=== PATIENT | female | born 1985 | race Two or more races ===

== ENCOUNTER 2021-04-29 01:31 | Emergency (ER) | payer MEDICAID, OTHER ==
[~2021-04-29] VITALS: Ht 154.9 cm; Wt 54.4 kg
[2021-04-29] MEDS ORDERED: LIDOCAINE W/ EPINEPHRINE 1% 20ML VIAL ID ONE (02:15)
[2021-04-29] MEDS ORDERED: HYDROcodone-ACET 5/325MG TAB PO ONE (05:00)
[2021-04-29] MEDS ORDERED: ONDANSETRON ODT 4 MG TAB PO ONE ×2 (05:07→05:15)
[2021-04-29 07:40] VITALS: BP 103/64
== END 2021-04-29 07:56 | disposition home or self-care (01) ==
LOC: ER 01:31
DX: S01.01XA Laceration without foreign body of scalp, initial encounter (principal); F10.129 Alcohol abuse with intoxication, unspecified; Z88.6 Allergy status to analgesic agent; W18.39XA Other fall on same level, initial encounter; Y93.89 Activity, other specified; Y92.89 Other specified places as the place of occurrence of the external cause; Y99.8 Other external cause status; Y90.8 Blood alcohol level of 240 mg/100 ml or more
CPT/HCPCS: 12002; 70450; 99284; Q0162

== ENCOUNTER 2022-01-24 22:14 | Emergency (ER) | payer MEDICAID ==
[~2022-01-24] VITALS: Ht 152.4 cm; Wt 55.8 kg
[2022-01-24] MEDS ORDERED: MORPHINE SULFATE 4 MG/ML SYR/VIAL IM ONE (22:45)
[2022-01-24 23:12] LABS: Basophils # (auto) 0 10 ^3/uL (0-0.2); Basophils % (auto) 0.4 % (0.0-2.0); Eosinophils # (auto) 0 10 ^3/uL (0-0.8); Eosinophils % (auto) 0.6 % (0.0-7.0); Hematocrit 33.9 % (36.0-46.0); Hemoglobin 11.5 g/dL (12.2-16.2); Lymphocytes # (auto) 1.9 10 ^3/uL (0.4-5.4); Lymphocytes % (auto) 29.9 % (10.0-50.0); Mean Corpuscular Hgb Conc. 33.9 g/dL (32.0-36.0); Mean Corpuscular Volume 97.2 fL (80.0-100.0); Monocytes # (auto) 0.3 10 ^3/uL (0-1.3); Monocytes % (auto) 5.4 % (0.0-12.0); Neutrophils % (auto) 63.7 % (37.0-80.0); Nucleated Red Blood Cells % 0.1 %; Red Blood Cells 3.48 10^6/uL (4.0-5.20); Red Cell Distribution Width 14.1 % (11.8-14.3); White Blood Cell 6.4 10^3/uL (4.4-10.8)
[2022-01-24 23:27] LABS: Urine Amorphous Crystal FEW /hpf (None Seen); Urine Bacteria FEW /hpf (None Seen); Urine Blood 3+ /uL (Negative); Urine Specific Gravity 1.016 (1.001-1.035); Urine WBC 19 /hpf (0 - 5)
[2022-01-24 23:40] LABS: Albumin 3.9 g/dL (3.4-5.0); BUN/Creatinine Ratio 15.3; Calcium 8.6 mg/dL (8.5-10.1); Potassium 3.5 mmol/L (3.5-5.1)
[2022-01-24 23:43] LABS: Bilirubin, Total 0.3 mg/dL (0.2-1.0); Total Protein 7.2 g/dL (6.4-8.2)
[2022-01-25 01:50] VITALS: BP 111/62
== END 2022-01-25 01:57 | disposition home or self-care (01) ==
LOC: ER 22:15
DX: N92.1 Excessive and frequent menstruation with irregular cycle (principal); F17.210 Nicotine dependence, cigarettes, uncomplicated; Z88.8 Allergy status to other drugs, medicaments and biological substances
CPT/HCPCS: 36415; 80053; 81001; 84702; 85025; 96372; 99285; J2270